=== PATIENT | male | born 1990 | race Caucasian/White ===

== ENCOUNTER 2016-08-10 20:24 | Emergency (ER) | payer OTHER | END 2016-08-11 00:12 | disposition home or self-care (01) | LOC: ER 20:24 | DX: S50.02XA Contusion of left elbow, initial encounter (principal); F17.200 Nicotine dependence, unspecified, uncomplicated; W19.XXXA Unspecified fall, initial encounter | CPT/HCPCS: 73080-LT; 99283 ==